=== PATIENT | male | born 1965 | race Caucasian/White ===

== ENCOUNTER → 2021-10-28 14:14 | Outpatient (CLI) | payer OTHER, SELFPAY ==
--- NOTE | 2021-10-28 | CA_ITS ---
APPROVED REPORT EXAM: Comprehensive 2D, Doppler, and color-flow Echocardiogram Pari Mutuel Clerk: Jeanna Cox RDCS Ht: 5 ft 9 in Wt: 179lbs BSA: 1.97 BP: 116/71 mmHg Indications: JUAREZ,PHTN 2D Dimensions LVOT 1.84 cm (M/F) 1.5-2.5 M-Mode Dimensions RVDd 2.14 cm (0.9-2.6) LA Diam 2.96 cm (1.9-4.0) LVDd 4.66 cm (3.5-5.7) Ao Diam 3.67 cm (2.0-3.7) LVDs 3.11 cm (3.5-5.7) IVSd 0.84 cm (0.6-1.1) PWd 0.70 cm (0.6-1.1) EF (Teich) 61.90% FS 33.30% EDV (Teich) 100.30 mL TAPSE 1.79 (<1.7) ESV (Teich) 38.20 mL LV Diastology E Decel Time 220.00 (160-240 msec) E/A Ratio 0.7 MED E' 7.10 (< 7 cm/sec) E'/MED E' Ratio 6.69 (>14) LAT E' 6.70 (<10 cm/sec) E/LAT E' Ratio 7.09 (>14) Mitral Valve MV E Max Charli. 47.00 (40-130 cm/s) MV A Velocity 72.00 (40-130 cm/s) E/A Ratio 0.66 MV Decel. Time 220.00 (160-240 ms) MV PHT 64.00 ms Left Ventricle Left atrium is mildly enlarged, left ventricle is normal size, visually estimated ejection fraction 45% with no regional wall motion abnormality, grade 1 diastolic dysfunction seen without tissue Doppler evidence of late left atrial pressure. Right Ventricle Right atrium and right ventricle are normal size and contractility. Aortic Valve Aortic valve appears to be bicuspid, there is no aortic outflow obstruction or aortic insufficiency. Mitral Valve Mitral valve grossly normal, there is trace mitral regurgitation. Tricuspid Valve Tricuspid valve grossly normal, there is trace tricuspid regurgitation, tricuspid regurgitation jet velocity is inadequate for calculation of the right ventricular systolic pressure. Pulmonic Valve Pulmonic valve is poorly visualized. Great Vessels Aortic root is and ascending aorta is mildly enlarged, but CT scan of the chest is recommended to exclude presence of thoracic aneurysm. Inferior vena cava is poorly visualized. Pericardium No significant pericardial effusion noted. Conclusion 1. Normal left ventricular size, visually estimated ejection fraction 55% with no regional wall motion abnormality, grade 1 diastolic dysfunction seen without tissue Doppler evidence of raise left atrial pressure. 2. Trace mitral and tricuspid regurgitation. 3. Enlarged aortic root and ascending aorta likely bicuspid aortic valve, a CT scan of the chest is recommended to exclude presence of thoracic aneurysm, there is no aortic stenosis or aortic insufficiency. 4. No significant pericardial effusion noted. 5. Inferior vena cava is poorly visualized. Electronically signed by : Alberto Horton MD 10/28/2021 20:40:56
== END ==
PROVIDERS: PCP Family Medicine; Visit Provider Family Medicine
DX: R06.09 Other forms of dyspnea (principal); I27.20 Pulmonary hypertension, unspecified
CPT/HCPCS: 93306

== ENCOUNTER → 2021-11-12 08:36 | Outpatient (CLI) | payer OTHER, SELFPAY ==
--- NOTE | 2021-11-12 08:43 | CT_ITS ---
FINAL REPORT TECHNIQUE: Axial images were obtained from the lung apex to the mid abdomen by computed tomography. Coronal reformatted images were obtained. This study was performed with techniques to keep radiation doses as low as reasonably achievable, (ALARA). Individualized dose reduction techniques using automated exposure control or adjustment of mA and/or kV according to the patient''s size were employed. CLINICAL HISTORY: MILD PULMONARY HPERTENSION COMPARISON: March 07, 2017 FINDINGS: There is no axillary adenopathy. There is no hilar or mediastinal adenopathy. Heart size is normal. There is no pericardial or pleural effusion. Limited images of the upper abdomen demonstrate a probable small cyst in the left hepatic lobe. No suspicious infiltrate or nodule is identified. There is mild scarring. There is a calcified granuloma in the left lung. There is a small hiatal hernia. IMPRESSION: No suspicious infiltrate or nodule is identified. Probable small cyst in the left hepatic lobe. Small hiatal hernia. Reviewed, Interpreted and Dictated by Rick Rivera III, MD Transcribed by Tayla Silverio Authenticated by Rick Rivera III, MD on 11/12/2021 10:26:21 AM [facility]
== END ==
PROVIDERS: PCP Family Medicine; Visit Provider Family Medicine
DX: I27.20 Pulmonary hypertension, unspecified (principal)
CPT/HCPCS: 71250